=== PATIENT | female | born 1980 | race Caucasian/White ===

== ENCOUNTER 2018-04-30 10:31 | Emergency (ER) | payer OTHER ==
[~2018-04-30] VITALS: Ht 165.1 cm; Wt 59.0 kg
[2018-04-30 10:34] VITALS: BP 117/77
[2018-04-30] MEDS ORDERED: PENI-88 PO (10:49)
== END 2018-04-30 11:03 | disposition home or self-care (01) ==
LOC: ER 10:32
DX: K08.89 Other specified disorders of teeth and supporting structures (principal); Z79.899 Other long term (current) drug therapy
CPT/HCPCS: 99283

== ENCOUNTER → 2019-09-09 | Outpatient (CLI) | payer OTHER ==
[2019-09-09 08:48] LABS: BASOPHILS # (AUTO) 0.1 X10'3 (0-0.2); BASOPHILS % (AUTO) 0.6 % (0-1); CLARITY,URINE CLEAR (Clear); COLOR,URINE YELLOW (Yellow); EOSINOPHILS # (AUTO) 0.1 X10'3 (0-0.9); EOSINOPHILS % (AUTO) 0.6 % (0-6); GLUCOSE, URINE NEGATIVE (Neg); HEMATOCRIT 38.4 % (35.0-45.0); KETONES,URINE NEGATIVE (Neg); LEUKOCYTE ESTERASE ,URINE NEGATIVE (Neg); LYMPHOCYTES # (AUTO) 1.3 X10'3 (1.1-4.8); LYMPHOCYTES % (AUTO) 13.6 % (21-51); MEAN CORPUSCULAR HEMOGLOBIN 31.6 PG (27.0-31.0); MEAN CORPUSCULAR VOLUME 93.2 FL (78-98); MONOCYTES # (AUTO) 0.6 X10'3 (0-0.9); MONOCYTES % (AUTO) 6.6 % (2-12); NEUTROPHILS # (AUTO) 7.6 X10'3 (1.8-7.7); NEUTROPHILS % (AUTO) 78.6 % (42-75); NITRITES, URINE NEGATIVE (Neg); OCCULT BLOOD,URINE NEGATIVE (Neg); PLATELET COUNT 307 X10'3 (140-440); PROTEIN,URINE NEGATIVE (Neg); RED BLOOD COUNT 4.12 X10'6 (4.20-5.60); RED CELL DISTRIBUTION WIDTH 13.3 % (11.5-14.5); UROBILINOGEN,URINE 0.2 E.U/dL (0.2-1.0); WHITE BLOOD COUNT 9.6 X10'3 (4.5-11.0)
[2019-09-09 08:51] LABS: UA COLLECTION TYPE NON-SPECIFIED
[2019-09-09 09:15] LABS: ALANINE AMINOTRANSFERASE 23 U/L (12-78); ALBUMIN 3.9 G/DL (3.4-5.0); ALKALINE PHOSPHATASE 44 IU/L (46-116); ANION GAP 5 (8-16); ASPARTATE AMINO TRANSFERASE 18 U/L (10-37); BILIRUBIN,TOTAL 0.5 MG/DL (0.1-1.0); BLOOD UREA NITROGEN 14 MG/DL (7-18); BUN/CREATININE RATIO 21.2 (6.6-38.0); CALCIUM 8.7 MG/DL (8.5-10.1); CHLORIDE 104 MMOL/L (99-107); CHOLESTEROL 165 MG/DL (0-200); CREATININE 0.66 MG/DL (0.40-0.90); GLUCOSE 84 MG/DL (70-104); HDL CHOLESTEROL 81 MG/DL (35-60); LDL CHOLESTEROL 71 MG/DL (50-100); POTASSIUM 4.9 MMOL/L (3.5-5.1); SODIUM 138 MMOL/L (135-145); TOTAL PROTEIN 7.9 G/DL (6.4-8.2); TRIGLYCERIDES 24 MG/DL (20-135); eGFR > 90 ML/MIN
== END | disposition home or self-care (01) ==
LOC: LAB 08:19
PROVIDERS: ATTEND Family Medicine
DX: I47.1 Supraventricular tachycardia (principal); F17.200 Nicotine dependence, unspecified, uncomplicated; Z76.89 Persons encountering health services in other specified circumstances
CPT/HCPCS: 36415; 80053; 80061; 81003; 84436; 84443; 85025